=== PATIENT | male | born 1990 | race Caucasian/White ===

== ENCOUNTER 2016-11-30 23:18 | Emergency (ER) | payer OTHER, BC ==
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
[2016-12-01 01:45] VITALS: BP 132/78
== END 2016-12-01 01:44 | disposition home or self-care (01) ==
LOC: ER 23:18
DX: S09.93XA Unspecified injury of face, initial encounter (principal); R51 Headache; F17.200 Nicotine dependence, unspecified, uncomplicated; V49.9XXA Car occupant (driver) (passenger) injured in unspecified traffic accident, initial encounter; Y92.410 Unspecified street and highway as the place of occurrence of the external cause
CPT/HCPCS: 70150; 99284